=== PATIENT | male | born 1965 | race Caucasian/White ===

== ENCOUNTER → 2020-09-05 | Outpatient (CLI) | payer BC ==
[~2020-09-05] MED LIST: LISI20; LORA1 PO; MECL25 PO; PRAV20; PROM25 PO
== END | disposition home or self-care (01) ==
LOC: LAB 12:30
DX: Z20.828 Contact with and (suspected) exposure to other viral communicable diseases (principal)
CPT/HCPCS: U0003

== ENCOUNTER → 2024-08-21 | Outpatient (CLI) | payer BC ==
[~2024-08-21] MED LIST changes: +Amlodipine Bes2.5 MG PO; +PRAV20 PO; +ZESTRIL40 M1 PO
== END ==
LOC: LAB SHORT 15:16 → LAB 15:16
DX: D17.0 Benign lipomatous neoplasm of skin and subcutaneous tissue of head, face and neck (principal); R59.0 Localized enlarged lymph nodes
CPT/HCPCS: 88173

== ENCOUNTER → 2024-09-06 | Outpatient (CLI) | payer BC | LOC: LAB SHORT 07:53 → LAB 07:53 | DX: C79.89 Secondary malignant neoplasm of other specified sites (principal); R59.0 Localized enlarged lymph nodes | CPT/HCPCS: 88305; 88341; 88342 ==

== ENCOUNTER 2025-04-05 06:02 | Emergency (ER) | payer BC ==
[~2025-04-05] VITALS: Ht 177.8 cm; Wt 124.7 kg
[2025-04-05] MEDS ORDERED: DOXYCYCLINE HY100 M1 PO (06:27)
[2025-04-05] MEDS ORDERED: LISI20 PO (06:28)
[2025-04-05] MEDS ORDERED: Ketorolac Tromethamine 15mg Vial IV ONE (06:30)
[2025-04-05 06:52] LABS: BASOPHILS ABSOLUTE AUTO 0.05 K/mm3 (0.00-0.23); BASOPHILS PERCENT AUTO 1 % (0-2); EOSINOPHILS ABSOLUTE AUTO 0.21 K/mm3 (0.00-0.68); EOSINOPHILS PERCENT AUTO 4 % (0-6); Hematocrit 38.1 % (37.0-53.0); Hemoglobin 13.0 g/dL (13.5-17.5); IMMATURE GRAN ABSOLUTE AUTO 0.15 K/mm3 (0.00-0.10); IMMATURE GRAN PERCENT AUTO 3 % (0-1); LYMPHOCYTES ABSOLUTE AUTO 0.74 K/mm3 (0.84-5.20); LYMPHOCYTES PERCENT AUTO 14 % (21-46); MONOCYTES ABSOLUTE AUTO 0.72 K/mm3 (0.16-1.47); MONOCYTES PERCENT AUTO 14 % (4-13); Mean Corpuscular HGB Conc 34.1 g/dL (31.5-36.5); Mean Corpuscular Volume 90 fL (80-100); NEUTROPHILS ABSOLUTE AUTO 3.37 K/mm3 (1.96-9.15); NEUTROPHILS PERCENT AUTO 64 % (41-73); NRBC ABSOLUTE 0.00 K/mm3 (0.00-0.02); NRBC Auto 0.0 /100 WBC (0.0-0.2); Platelet Count 246 K/mm3 (150-400); RDW Coefficient Variation 13.1 % (11.7-14.2); RDW Standard Deviation 43.4 fL (35.1-46.3)
[2025-04-05 07:33] LABS: Alanine Aminotransfer (ALT/SGP 80.0 U/L (12-78); Albumin, Blood 2.6 g/dL (3.4-5.0); Albumin/Globulin Ratio 0.6 (0.8-1.8); Anion Gap 9.0 mmol/L (3-11); Aspartate Aminotrans (AST/SGOT 90.0 U/L (12-37); Bilirubin, Total 0.4 mg/dL (0.1-1.0); Blood Urea Nitrogen 35.0 mg/dL (8-24); CO2, Blood 23.0 mmol/L (21-32); Calcium, Blood 9.1 mg/dL (8.5-10.1); Chloride, Blood 105.0 mmol/L (98-108); Creatinine, Blood 1.72 mg/dL (0.60-1.20); Globulin, Blood 4.3 g/dL (2.2-4.0); Glucose, Blood 116.0 mg/dL (70-99); Potassium, Blood 5.0 mmol/L (3.5-5.5); Sodium, Blood 132.0 mmol/L (136-145); Total Protein, Blood 6.9 g/dL (6.4-8.2)
[2025-04-05] MEDS ORDERED: Robaxin750 MG PO (07:58)
[2025-04-05 08:11] VITALS: BP 115/91
[2025-04-06] MEDS ORDERED: DIAZ5 PO (04:46)
[2025-04-06] MEDS ORDERED: Voltaren100 GM TOP (04:46)
== END 2025-04-05 08:12 | disposition home or self-care (01) ==
LOC: ER 06:02
PROVIDERS: Emergency Medicine
DX: M62.830 Muscle spasm of back (principal); I10 Essential (primary) hypertension; E78.5 Hyperlipidemia, unspecified; G47.30 Sleep apnea, unspecified; Z79.899 Other long term (current) drug therapy
CPT/HCPCS: 72100; 80053; 82550; 83880; 85025; 96374; 99283-25; A9270; J1885

== ENCOUNTER 2025-04-06 02:54 | Emergency (ER) | payer BC ==
[~2025-04-06] VITALS: Ht 177.8 cm; Wt 124.7 kg
[~2025-04-06 02:54] MED LIST changes: +DOXYCYCLINE HY100 M1 PO; +LISI20 PO; +Robaxin750 MG PO
[2025-04-06 04:45] VITALS: BP 138/87
[2025-04-06] MEDS ORDERED: Voltaren100 GM TOP (04:46)
[2025-04-06] MEDS ORDERED: DIAZ5 PO (04:46)
== END 2025-04-06 05:00 | disposition home or self-care (01) ==
LOC: ER 02:54
DX: S39.012A Strain of muscle, fascia and tendon of lower back, initial encounter (principal); I10 Essential (primary) hypertension; E78.5 Hyperlipidemia, unspecified; G47.30 Sleep apnea, unspecified; X58.XXXA Exposure to other specified factors, initial encounter; Z79.899 Other long term (current) drug therapy; Z88.8 Allergy status to other drugs, medicaments and biological substances
CPT/HCPCS: 99283; A9270

== ENCOUNTER 2025-04-08 17:55 | Emergency (ER) | payer BC ==
[~2025-04-08] VITALS: Ht 177.8 cm; Wt 124.7 kg
[~2025-04-08 17:55] MED LIST changes: +DIAZ5 PO; +Voltaren100 GM TOP
[2025-04-08] MEDS ORDERED: Morphine Sulfate 4 MG/1 ML Injection IV ONE (18:35)
[2025-04-08 18:58] LABS: BASOPHILS ABSOLUTE AUTO 0.06 K/mm3 (0.00-0.23); BASOPHILS PERCENT AUTO 1 % (0-2); EOSINOPHILS ABSOLUTE AUTO 0.07 K/mm3 (0.00-0.68); EOSINOPHILS PERCENT AUTO 1 % (0-6); Hematocrit 39.6 % (37.0-53.0); Hemoglobin 13.8 g/dL (13.5-17.5); IMMATURE GRAN ABSOLUTE AUTO 0.06 K/mm3 (0.00-0.10); IMMATURE GRAN PERCENT AUTO 1 % (0-1); LYMPHOCYTES ABSOLUTE AUTO 0.78 K/mm3 (0.84-5.20); LYMPHOCYTES PERCENT AUTO 12 % (21-46); MONOCYTES ABSOLUTE AUTO 0.73 K/mm3 (0.16-1.47); MONOCYTES PERCENT AUTO 12 % (4-13); Mean Corpuscular HGB Conc 34.8 g/dL (31.5-36.5); Mean Corpuscular Volume 87 fL (80-100); NEUTROPHILS ABSOLUTE AUTO 4.66 K/mm3 (1.96-9.15); NEUTROPHILS PERCENT AUTO 73 % (41-73); NRBC ABSOLUTE 0.00 K/mm3 (0.00-0.02); NRBC Auto 0.0 /100 WBC (0.0-0.2); Platelet Count 242 K/mm3 (150-400); RDW Coefficient Variation 12.8 % (11.7-14.2); RDW Standard Deviation 41.2 fL (35.1-46.3)
[2025-04-08 19:29] LABS: Alanine Aminotransfer (ALT/SGP 62.0 U/L (12-78); Albumin, Blood 3.1 g/dL (3.4-5.0); Albumin/Globulin Ratio 0.6 (0.8-1.8); Anion Gap 10.0 mmol/L (3-11); Aspartate Aminotrans (AST/SGOT 64.0 U/L (12-37); Bilirubin, Total 0.7 mg/dL (0.1-1.0); Blood Urea Nitrogen 25.0 mg/dL (8-24); C-REACTIVE PROTEIN, EXT RANGE 2.6 mg/dL (0.000-0.300); CO2, Blood 21.0 mmol/L (21-32); Calcium, Blood 8.7 mg/dL (8.5-10.1); Chloride, Blood 101.0 mmol/L (98-108); Creatinine, Blood 1.53 mg/dL (0.60-1.20); Globulin, Blood 5.0 g/dL (2.2-4.0); Glucose, Blood 102.0 mg/dL (70-99); Magnesium, Blood 1.7 mg/dL (1.6-2.4); Potassium, Blood 4.3 mmol/L (3.5-5.5); Sodium, Blood 128.0 mmol/L (136-145); Total Protein, Blood 8.1 g/dL (6.4-8.2)
[2025-04-08] MEDS ORDERED: Ondansetron HCl 2 MG / ML 2ML Vial IV ONE (19:30)
[2025-04-08] MEDS ORDERED: NS 1,000 ML IV SCH (19:35)
[2025-04-08] MEDS ORDERED: HYDROmorphone HCl/Pf 1MG SYR IV ONE (21:20)
[2025-04-08 21:40] LABS: Source, Urine Clean Catch
[2025-04-08 21:49] LABS: Bilirubin, Urine Neg (Neg); Glucose Qualitative, Urine Neg (Neg); Ketones, Urine Neg (Neg); Leukocyte Esterase, Urine Neg (Neg); Protein, Urine 2+ (Neg); Specific Gravity, Urine 1.015 (1.003-1.022); Urobilinogen, Urine NORM (Normal)
[2025-04-08 21:53] LABS: Color, Urine Yellow (P-Yellow)
[2025-04-08 21:57] LABS: Red Blood Cells, Urine 0-2 /hpf (0-2); White Blood Cells, Urine 0-2 /hpf (0-5)
[2025-04-08 22:19] VITALS: BP 138/75
== END 2025-04-08 23:30 | disposition home or self-care (01) ==
LOC: ER 17:55
PROVIDERS: Emergency Medicine
DX: N17.9 Acute kidney failure, unspecified (principal); N43.3 Hydrocele, unspecified; N05.9 Unspecified nephritic syndrome with unspecified morphologic changes; R16.1 Splenomegaly, not elsewhere classified; C43.9 Malignant melanoma of skin, unspecified; I10 Essential (primary) hypertension; Z79.60 Long term (current) use of unspecified immunomodulators and immunosuppressants; Z79.899 Other long term (current) drug therapy
CPT/HCPCS: 51798; 74177; 76870; 80053; 81001; 83735; 85025; 85651; 86140; 96361; 96374-59; 96375; 99284-25; J1171; J2270; J2405; J7030; Q9967